=== PATIENT | male | born 1940 | race Caucasian/White ===

== ENCOUNTER 2019-10-26 13:10 | Inpatient (IN) ==
[2019-10-26 14:15] LABS: Basophils # (auto) 0.06 K/uL (0-0.2); Basophils % (auto) 0.8 %; Eosinophils # (auto) 0.09 K/uL (0-0.5); Eosinophils % (auto) 1.3 %; Hematocrit (blood only) 40.5 % (42-52); Hemoglobin 13.3 g/dL (14.0-18.0); Immature Granulocytes # (auto) 0.01 K/uL (0.00-0.02); Immature Granulocytes % (auto) 0.1 %; Lymphocytes # (auto) 1.07 K/uL (1.2-3.4); Lymphocytes % (auto) 15.2 %; Mean Corpuscular Hemoglobin 30.4 pg (25-34); Mean Corpuscular Hgb Conc 32.8 g/dL (32-36); Mean Corpuscular Volume 92.7 fL (80-100); Mean Platelet Volume 12.9 fL (7.4-10.4); Monocytes # (auto) 0.69 K/uL (0.11-0.59); Monocytes % (auto) 9.8 %; Neutrophils # (auto) 5.14 K/uL (1.4-6.5); Neutrophils % (auto) 72.8 %; Platelet Count 187 K/uL (130-400); RDW Coefficient of Variation 15.1 % (11.5-14.5); RDW Standard Deviation 50.9 fL (36.4-46.3); Red Blood Count 4.37 M/uL (4.7-6.1); White Blood Count 7.06 K/uL (4.8-10.8)
[2019-10-26 14:25] LABS: INR 1.2 (0.9-1.1); Prothrombin Time 11.9 Seconds (9.0-12.0)
[2019-10-26 14:34] LABS: Alanine Aminotransferase 29 U/L (12-78); Albumin Level 3.6 gm/dl (3.4-5.0); Aspartate Aminotransferase 29 U/L (15-37); BUN Creatinine Ratio 28.5 (10-20); Blood Urea Nitrogen 52 mg/dl (7-18); Carbon Dioxide 24 mmol/L (21-32); Chloride 105 mmol/L (98-107); Est GFR (Non-African American) 34.5; Glucose 108 mg/dl (70-99); Magnesium 2.3 mg/dl (1.8-2.4); Potassium 4.4 mmol/L (3.5-5.1); Sodium 137 mmol/L (136-145)
[2019-10-26 14:36] LABS: Bilirubin,Total 1.2 mg/dl (0.2-1); Globulin 3.7 gm/dl (2.5-4.0); Total Protein 7.3 gm/dl (6.4-8.2)
[2019-10-26 14:48] LABS: Alkaline Phosphatase 64 U/L (45-117); Troponin I 0.099 ng/ml (0-0.045)
--- NOTE | 2019-10-26 14:51 | XRay Report ---
XR chest 1V portable CLINICAL HISTORY: weakness dyspnea COMPARISON STUDY: No previous studies for comparison. FINDINGS: Mild cardiac enlargement. Interstitial prominence both lung bases. Mild elevation right hem idiaphragm. Trace pleural fluid lateral costophrenic angles. IMPRESSION: Congestive heart failure ACT 112: Negative or not required by law. The above report was generated using voice recognition software. It may contain grammatical, syntax or spelling errors. Electronically signed by: Frank Acosta M.D. 10/26/2019 2:50 PM
--- NOTE | 2019-10-26 14:54 | XRay Report ---
XR tibia fibula RT 2V CLINICAL HISTORY: fall trauma. Pain. COMPARISON: None. DISCUSSION: The bones and joint spaces appear intact. There is no evidence of fracture, dislocation o r bony disease. There is no evidence for soft tissue swelling. IMPRESSION: Negative study. ACT 112: Negative or not required by law. The above report was generated using voice recognition software. It may contain grammatical, syntax or spelling errors. Electronically signed by: Frank Acosta M.D. 10/26/2019 2:53 PM
--- NOTE | 2019-10-26 14:55 | XRay Report ---
XR tibia fibula LT 2V CLINICAL HISTORY: fall trauma. Pain. COMPARISON: None. DISCUSSION: The bones and joint spaces appear intact. There is no evidence of fracture, dislocation o r bony disease. Mild generalized soft tissue edema IMPRESSION: Soft tissue edema. No acute bony abnormality. ACT 112: Negative or not required by law. The above report was generated using voice recognition software. It may contain grammatical, syntax or spelling errors. Electronically signed by: Frank Acosta M.D. 10/26/2019 2:54 PM
--- NOTE | 2019-10-26 14:57 | Electrocardiogram Report ---
Test Reason : Blood Pressure : / mmHG Vent. Rate : 095 BPM Atrial Rate : 094 BPM P-R Int : 000 ms QRS Dur : 108 ms QT Int : 370 ms P-R-T Axes : 000 -17 147 degrees QTc Int : 464 ms Poor data quality, interpretation may be adversely affected Sinus rhythm with pvc with frequent Premature atrial complexes Inferior infarct , age undetermined Anterior infarct , age undetermined Abnormal ECG No previous ECGs available Confirmed by Jesus Parish ([id number]) on 10/26/2019 2:57:13 PM Referred By: ER Confirmed By:Jesus Parish
[2019-10-26] MEDS ORDERED: FUROSEMIDE 40 MG/4 ML VIAL IV STA ×2 (15:59→16:20)
--- NOTE | 2019-10-26 16:24 | Ultrasound Report ---
ULTRASOUND BILATERAL LOWER EXTREMITY VENOUS CLINICAL HISTORY: Lower extremity edema. COMPARISON STUDY: No priors. TECHNIQUE: Real-time, grayscale, and color Doppler sonography of the deep veins of the right and left lower extremity was performed from the inguinal crease to the calf. Compression and augmentation wer e utilized. FINDINGS: There is no sonographic evidence of deep venous thrombosis identified in the right or left lower extremity. The common femoral, superficial femoral, and popliteal veins are patent and normally compressible bilaterally. The greater saphenous vein and the profunda femoris vein at the junction w ith the common femoral vein are clear in both legs. The visualized calf veins are patent bilaterally. IMPRESSION: There is no sonographic evidence of deep venous thrombosis identified in the right or lef t lower extremity. ACT 112: Negative or not required by law. Electronically signed by: Kevon Sims M.D. 10/26/2019 4:23 PM
--- NOTE | 2019-10-26 16:45 | History & Physical Report ---
Date of Service October 26, 2019 Assessment & Plan (1) CHF (congestive heart failure): -Admit to telemetry -Patient presenting from home with reports of lower extremity pain and swelling -In the ED, CXR and exam suggestive of CHF -No prior history of decompensated CHF -Patient does not follow with medical providers routinely -Echo 2012: EF 55 to 59%, grade 1 diastolic dysfunction, moderate aortic valve sclerosis -Initial troponin mildly elevated, EKG shows NSR with PVC and PAC and T wave inversions in the lateral leads (no recent EKG available for comparison), no reports of chest pain -Troponin elevation likely due to demand ischemia -Continue to cycle cardiac enzymes, resting echo -Lasix 60 mg IV x1, further diuresis to be determined in the morning after evaluation of renal function -Cardiology consult (2) PAD (peripheral artery disease): -Patient's leg pain likely coming from intermittent claudication from PAD -Had outpatient arterial ultrasound on 09/07/2019 showing marked bilateral arterial vascular disease -Patient was referred for vascular intervention however has not been evaluated yet -Start aspirin and statin (3) Abnormal renal function: -Creatinine 1.8 -Unknown baseline, labs reviewed from PCP from 2017 showing creatinine 1.2 -May have underlying CKD -Monitor renal functions closely while receiving IV diuresis (4) HTN (hypertension): -BP currently controlled -Patient prescribed lisinopril 40 mg daily however takes infrequently -will hold for now due to abnormal renal function (5) Weight loss: -Patient reports a 20 pound unintentional weight loss over the past 2 months -Also has some right-sided abdominal tenderness on exam -CT ABD/pelvis without contrast (6) DVT prophylaxis: -SQ heparin History of Present Illness Chief Complaint: Leg Pain and Swelling Primary Care Provider: Low Rosas 79 year old male who presents to the ED for evaluation of leg pain and swelling. Patient reports his symptoms have been going on for about the past one year. Patient reports lower extremity pain with walking that improves with rest. He also notes the swelling gets worse with walking as well. Patient notes some shortness of breath in the morning after waking up. Has a dry, nonproductive cough. Denies chest pain. No orthopnea. Has been feeling generally weak recently and has had a few falls. Denies striking his head or loss of consciousness. No lightheadedness or dizziness. Reports his appetite has been poor over the past couple months and has had a 20 pound unintentional weight loss. Denies abdominal pain, nausea, vomiting, diarrhea. No fevers or chills. Denies urinary symptoms. Allergies Allergy/AdvReac Type Severity Reaction Status Date / Time No Known Drug Allergies AdvReac Unknown Unknown Unverified 10/26/19 13:44 Home Medications Home Medications Medication Instructions Recorded Confirmed Type lisinopril 40 mg PO DAILY 10/26/19 10/26/19 History Past Med/Surg History Medical History (Updated 10/26/19 @ 17:42 by CAIN Pacheco) HTN (hypertension) PAD (peripheral artery disease) Surgical History S/P carotid endarterectomy Family History Sister Stroke Social History Preferred Language: Vietnamese Communication Ability: Effective Pourer Off Required: No Beliefs That Will Affect Care: None Current Living Situation: Family Other Information That Helps Us Care for You: No Feels Safe at Home: Yes Safety Concerns: Feels Safe At This Time Smoking Status: Former smoker Do You Dip or Chew Tobacco: No ; Second Hand Exposure: No ; Hx Alcohol Use: Yes Alcohol type: beer Alcohol Intake Frequency: Weekly Hx Substance Use: No Review of Systems Review of Systems: ROS per HPI, all other systems reviewed and negative Physical Exam Physical Exam: Please refer to Dr. Shah's addendum for physical exam. Results & Data Vital Signs (Past 12 Hours) Vital Signs Temp Pulse Pulse Resp BP BP Pulse Ox 10/26/19 15:59 86 20 130/96 96 10/26/19 14:59 89 98 10/26/19 14:25 89 16 133/76 98 10/26/19 13:21 36.3 C L 83 18 109/73 98 Laboratory Results Short CBC 10/26/19 Range/Units 14:05 WBC 7.06 (4.8-10.8) K/uL Hgb 13.3 L (14.0-18.0) g/dL Hct 40.5 L (42-52) % Plt Count 187 (130-400) K/uL BMP 10/26/19 14:05 Sodium 137 Potassium 4.4 Chloride 105 Carbon Dioxide 24 BUN 52 H Creatinine 1.81 H Glucose 108 H Calcium 10.0 Cardiac Enzymes 10/26/19 Range/Units 14:05 Troponin I 0.099 H* (0-0.045) ng/ml Liver Function 10/26/19 Range/Units 14:05 Total Bilirubin 1.2 H (0.2-1) mg/dl AST 29 (15-37) U/L ALT 29 (12-78) U/L Alkaline Phosphatase 64 (45-117) U/L Albumin 3.6 (3.4-5.0) gm/dl Diagnostic Findings CXR IMPRESSION: Congestive heart failure LEFT TIBIA-FIBULA X-RAY IMPRESSION: Soft tissue edema. No acute bony abnormality. RIGHT TIBIA-FIBULA X-RAY IMPRESSION: Negative study. BL LE VENOUS DOPPLER IMPRESSION: There is no sonographic evidence of deep venous thrombosis identified in the right or left lower extremity. Code Status & VTE Plan Code Status Patient is a DNR as per Dr. Shah's discussion with the patient. VTE Prophylaxis Plan VTE Prophylaxis will be ordered: Yes Supervising Physician Co-Signing Physician Notes Patient is an 79-year-old male with history of peripheral artery disease, hypertension and no other significant past medical history presents with history of worsening lower extremity edema, shortness of breath intermittently, weight loss, poor appetite. He denied any chest pain. Patient admits to being noncompliant with his medications. He admits to falling multiple times but was unsure about the last event. Please review HPI for complete details of presentation. Chest x-ray suggestive of congestive heart failure. Venous Doppler showed no acute DVT. CT abdomen showed cholelithiasis, pericholecystic fluid and stranding. Physical Exam: Vitals signs as noted above General Appearance:Thin, Frail, no apparent distress Head: normocephalic, Atraumatic Eyes: normal inspection, EOMI Neck: supple, Trachea midline Respiratory/Chest: Normal breath sounds, B/L rales, No accessory muscle use Cardiovascular: S1, S2, + murmur Abdomen/GI:Soft, RUQ tender, Bowel sounds present Extremities/Musculoskelatal:normal inspection, B/L LE edema Neurologic/Psych:AAOX3, grossly no focal neurological deficits Skin: normal color, warm Acute CHF Agree with IV Lasix Monitor I's and O's, daily weight, volume status Cardiology consulted Troponin elevation likely secondary to demand ischemia from volume overload, CKD Patient denies chest pain Trend cardiac enzymes and repeat EKG in the morning Monitor renal function while on IV diuretics Check resting ECHO R/O cholecystitis CT abdominal findings as above Empirically started on Rocephin, Flagyl Keep him n.p.o. after midnight Consulted general surgery Trend LFTs I personally reviewed the record. Patient is interviewed and examined at bedside. Patient's care is coordinated with Kate Padilla [employer] SAL[employer]SULT[employer]. Please refer to the documentation above for details of patient's presentation and for discussion of other issues.
--- NOTE | 2019-10-26 17:31 | Emergency Department Note ---
Entered by Monroe Moreland acting as a scribe for Holland Villa M.D. History of Present Illness General Chief complaint: Swelling/Edema to Extremity Stated complaint: LEGS SWELLING Time Seen by Provider: 10/26/19 13:30 Source: patient Limitations: no limitations History of Present Illness Onset (ago): month(s) 1 Location: lower extremity (bilateral calves) Pain Consistency: + constant Maximum Pain Intensity: 0 Quality: + constant Exacerbated By: + movement (SOB) Associated symptoms: + denies other symptoms (abdominal pain, diarrhea) and + cough; no chest pain The patient is a 79 year old male who presents to the Emergency Room with complaints of constant calf pain in both of his calves starting a month ago. The patient states he has been falling and notes he fell last month because of his calf pain. He states he has been losing weight and notes he has lost his appetite. He notes he has been SOB with exertion. He states he has been coughing. The patient denies having chest pain, abdominal pain, and diarrhea. Home Medications Home Medications Medication Instructions Recorded Confirmed Type lisinopril 40 mg PO DAILY 10/26/19 10/26/19 History Allergies Allergy/AdvReac Type Severity Reaction Status Date / Time No Known Drug Allergies AdvReac Unknown Unknown Unverified 10/26/19 13:44 Past Med/Surg History Medical History (Updated 10/26/19 @ 17:30 by CAIN Pacheco) HTN (hypertension) PAD (peripheral artery disease) Surgical History S/P carotid endarterectomy Family History Sister Stroke Social History Preferred Language: Indonesian Feels Safe at Home: Yes Smoking Status: Former smoker Hx Alcohol Use: Yes Alcohol type: beer Alcohol Intake Frequency: Weekly Review of Systems See HPI for pertinent positives & negatives. and A total of 10 systems reviewed and were otherwise negative Physical Exam Vital Signs Vital Signs - 24 hr 10/26/19 13:21 10/26/19 14:07 10/26/19 14:21 Temperature 36.3 C L Temperature Source Oral Pulse Rate 83 89 90 Pulse Rate [Apical] Pulse Rate from SpO2 Sensor Pulse Rhythm Pulse Rhythm [Apical] Respiratory Rate 18 16 25 H Respiratory Effort / Characteristics Non-Labored Respiratory Depth Normal Blood Pressure 109/73 133/76 Blood Pressure [Right Arm] Blood Pressure Mean 85 83 Blood Pressure Mean [Right Arm] Blood Pressure Position Sitting Pulse Oximetry 98 Oxygen Delivery Method Room Air Sepsis Recent Fever Within 48 Hours No Sepsis New/Unexplained Change in Mental Status No Sepsis Action Taken by Nursing No Action Required 10/26/19 14:25 10/26/19 14:30 10/26/19 14:59 Temperature Temperature Source Pulse Rate 87 89 Pulse Rate [Apical] 89 Pulse Rate from SpO2 Sensor 89 Pulse Rhythm Irregular Pulse Rhythm [Apical] Respiratory Rate 16 22 Respiratory Effort / Characteristics Respiratory Depth Blood Pressure Blood Pressure [Right Arm] 133/76 Blood Pressure Mean Blood Pressure Mean [Right Arm] 95 Blood Pressure Position Pulse Oximetry 98 98 98 Oxygen Delivery Method Room Air Room Air Sepsis Recent Fever Within 48 Hours Sepsis New/Unexplained Change in Mental Status Sepsis Action Taken by Nursing 10/26/19 15:00 10/26/19 15:30 10/26/19 15:53 Temperature Temperature Source Pulse Rate 90 84 Pulse Rate [Apical] Pulse Rate from SpO2 Sensor 90 87 Pulse Rhythm Pulse Rhythm [Apical] Respiratory Rate 24 27 H Respiratory Effort / Characteristics Respiratory Depth Blood Pressure 130/96 Blood Pressure [Right Arm] Blood Pressure Mean 109 Blood Pressure Mean [Right Arm] Blood Pressure Position Pulse Oximetry 97 84 L Oxygen Delivery Method Sepsis Recent Fever Within 48 Hours Sepsis New/Unexplained Change in Mental Status Sepsis Action Taken by Nursing 10/26/19 15:59 10/26/19 16:24 10/26/19 16:25 Temperature Temperature Source Pulse Rate 91 H 90 Pulse Rate [Apical] 86 Pulse Rate from SpO2 Sensor Pulse Rhythm Pulse Rhythm [Apical] Irregular Respiratory Rate 20 14 19 Respiratory Effort / Characteristics Non-Labored Respiratory Depth Normal Blood Pressure 128/80 Blood Pressure [Right Arm] 130/96 Blood Pressure Mean 90 Blood Pressure Mean [Right Arm] 107 Blood Pressure Position Pulse Oximetry 96 Oxygen Delivery Method Room Air Sepsis Recent Fever Within 48 Hours Sepsis New/Unexplained Change in Mental Status Sepsis Action Taken by Nursing 10/26/19 16:30 10/26/19 17:00 Temperature Temperature Source Pulse Rate 103 H 91 H Pulse Rate [Apical] Pulse Rate from SpO2 Sensor Pulse Rhythm Pulse Rhythm [Apical] Respiratory Rate 19 20 Respiratory Effort / Characteristics Respiratory Depth Blood Pressure Blood Pressure [Right Arm] Blood Pressure Mean Blood Pressure Mean [Right Arm] Blood Pressure Position Pulse Oximetry Oxygen Delivery Method Sepsis Recent Fever Within 48 Hours Sepsis New/Unexplained Change in Mental Status Sepsis Action Taken by Nursing GENERAL: Awake, alert, fatigued appearing, in no distress HENT: Normocephalic, atraumatic. EYES: Normal conjunctiva. Sclera non-icteric. NECK: Supple. No nuchal rigidity. RESPIRATORY: Clear to auscultation. No wheezes. Normal respiratory effort. CARDIAC: Normal rate. Irregular rhythm. Extremities warm and well perfused. GI: Soft, non-distended. No tenderness to palpation. No rebound or guarding. RECTAL: Deferred. MUSCULOSKELETAL: Atraumatic. Chest examination reveals no tenderness. LOWER EXTREMITIES: Calves are equal size bilaterally. 2+ lower extremity edema with mild bilateral calf pain/tenderness. NEURO: Normal sensorium. No sensory or motor deficits noted. No facial droop. SKIN: Warm and dry. No jaundice noted. Course Course 1342: The patient was evaluated in room A3, and a complete history and physical examination were performed. 1600: I discussed the patient's case with Dano Pacheco. Dr. Shah - [facility], will evaluate the patient for further management Administered Medications Discontinued Medications Furosemide (Lasix) 20 mg IV NOW STA Stop: 10/26/19 16:00 Last Admin: 10/26/19 16:50 Dose: Not Given Documented by: [id number] Furosemide (Lasix) 60 mg IV NOW STA Stop: 10/26/19 16:21 Last Admin: 10/26/19 16:50 Dose: 60 mg Documented by: [id number] Medical Decision Making Differential Diagnosis Differential Diagnosis includes but is not limited to dehydration, stroke, anemia, hypoglycemia, hyponatremia, hypernatremia, DVT, urinary tract infection, pneumonia, bronchitis, sepsis, gastroenteritis, additional abdominal pathology, metabolic abnormalities and infections. Medical Records Attestation: I reviewed the patient's medical records. Home Medications Current Medication List: was personally reviewed by me Laboratory Data Attestation: I reviewed the patient's lab results. Result diagrams: 10/26/19 14:05 10/26/19 14:05 Lab Results 10/26/19 10/26/19 10/26/19 Range/Units 14:05 14: 14:05 WBC 7.06 (4.8-10.8) K/uL RBC 4.37 L (4.7-6.1) M/uL Hgb 13.3 L (14.0-18.0) g/dL Hct 40.5 L (42-52) % MCV 92.7 (80-100) fL MCH 30.4 (25-34) pg MCHC 32.8 (32-36) g/dL RDW Std Deviation 50.9 H (36.4-46.3) fL RDW Coeff of Kurtis 15.1 H (11.5-14.5) % Plt Count 187 (130-400) K/uL MPV 12.9 H (7.4-10.4) fL Immature Gran % (Auto) 0.1 % Neut % (Auto) 72.8 % Lymph % (Auto) 15.2 % Nelson % (Auto) 9.8 % Eos % (Auto) 1.3 % Baso % (Auto) 0.8 % Immature Gran # (Auto) 0.01 (0.00-0.02) K/uL Neut # (Auto) 5.14 (1.4-6.5) K/uL Lymph # (Auto) 1.07 L (1.2-3.4) K/uL Nelson # (Auto) 0.69 H (0.11-0.59) K/uL Eos # (Auto) 0.09 (0-0.5) K/uL Baso # (Auto) 0.06 (0-0.2) K/uL PT 11.9 (9.0-12.0) Seconds INR 1.2 H (0.9-1.1) Sodium 137 (136-145) mmol/L Potassium 4.4 (3.5-5.1) mmol/L Chloride 105 (98-107) mmol/L Carbon Dioxide 24 (21-32) mmol/L Anion Gap 8.0 (3-11) BUN 52 H (7-18) mg/dl Creatinine 1.81 H (0.6-1.4) mg/dl Est Cr Clr Drug Dosing Not Reportable Est GFR ( Amer) 40.0 Est GFR (Non-Af Amer) 34.5 BUN/Creatinine Ratio 28.5 H (10-20) Glucose 108 H (70-99) mg/dl Calcium 10.0 (8.5-10.1) mg/dl Magnesium 2.3 (1.8-2.4) mg/dl Total Bilirubin 1.2 H (0.2-1) mg/dl AST 29 (15-37) U/L ALT 29 (12-78) U/L Alkaline Phosphatase 64 (45-117) U/L Troponin I 0.099 H* (0-0.045) ng/ml Total Protein 7.3 (6.4-8.2) gm/dl Albumin 3.6 (3.4-5.0) gm/dl Globulin 3.7 (2.5-4.0) gm/dl Albumin/Globulin Ratio 1.0 (0.9-2) TSH 3.300 (0.300-4.500) uIu/ml Imaging Data Radiologist's Impression: Radiology results as stated below per my review and the radiologist's interpretation: XR chest 1V portable CLINICAL HISTORY: weakness dyspnea COMPARISON STUDY: No previous studies for comparison. FINDINGS: Mild cardiac enlargement. Interstitial prominence both lung bases. Mild elevation right hemidiaphragm. Trace pleural fluid lateral costophrenic angles. IMPRESSION: Congestive heart failure ACT 112: Negative or not required by law. The above report was generated using voice recognition software. It may contain grammatical, syntax or spelling errors. Electronically signed by: Frank Acosta M.D. 10/26/2019 2:50 PM XR tibia fibula LT 2V CLINICAL HISTORY: fall trauma. Pain. COMPARISON: None. DISCUSSION: The bones and joint spaces appear intact. There is no evidence of fracture, dislocation or bony disease. Mild generalized soft tissue edema IMPRESSION: Soft tissue edema. No acute bony abnormality. ACT 112: Negative or not required by law. The above report was generated using voice recognition software. It may contain grammatical, syntax or spelling errors. Electronically signed by: Frank Acosta M.D. 10/26/2019 2:54 PM XR tibia fibula RT 2V CLINICAL HISTORY: fall trauma. Pain. COMPARISON: None. DISCUSSION: The bones and joint spaces appear intact. There is no evidence of f racture, dislocation or bony disease. There is no evidence for soft tissue swelling. IMPRESSION: Negative study. ACT 112: Negative or not required by law. The above report was generated using voice recognition software. It may contain grammatical, syntax or spelling errors. Electronically signed by: Frank Acosta M.D. 10/26/2019 2:53 PM ECG Data Attestation: I personally reviewed and interpreted this ECG as follows: Indication: + weakness Rate (beats per minute): 95 Rhythm: + sinus rhythm ECG ST segments: + T-wave inversions (lateral) ECG Findings: + PACs and + PVCs Comparison ECG Date: no prior available Blood Pressure Blood Pressure Findings: Elevated blood pressure Blood Pressure Disposition: further management by hospitalist QI Narrative Patient is an 79-year-old gentleman presenting today complaining of swelling of his bilateral lower legs and some calf pain over the last month or so. States last 3 months he is to the gym regularly but now feels weak and has some wasting of his extremities and losing weight. States he is not much of an appetite. Distant smoker. Denies chest pain but states occasionally feels short of breath with stairs. States occasionally gets some claudication sounding symptoms with going up the stairs. States he fell a month ago and bumped his head but do not feel we need additional imaging here at this time given the time since this occurred and lack of significant symptoms. Laboratory studies show evidence of slight anemia. Renal dysfunction was noted with creatinine 1.8 otherwise unsure of his baseline. Detectable elevated troponin is noted. TSH within normal is. Note is hepatic dysfunction. Bilirubin just above normal. Doubt this represents PE. Ultrasound lower extremities negative findings and as well as the tib-fib x-rays bilaterally. Chest x-ray noted on radiology report and r eviewed by myself with evidence of mild right hemidiaphragm elevation and trace fluid congestion with some fluid overload/CHF. EKG noted to show what appears to be in conjunction with a monitor normal rhythm with ectopy and I doubt this is acute A. fib. Given a small mount of Lasix for evidence of fluid overload. Believe this is likely new onset CHF. Ultrasound lower extremity completed without evidence of blood clots. [facility] May have some underlying cardiac disease as well. Impression & Plan Elevated troponin, ABDUL (dyspnea on exertion), New onset of congestive heart failure, Pedal edema Discharge Plan Visit Data Chief Complaint: Swelling/Edema to Extremity Stated Complaint: LEGS SWELLING ED Provider: Holland Villa Discharge Problem: Elevated troponin, ABDUL (dyspnea on exertion), New onset of congestive heart failure, Pedal edema Patient Disposition: Being Evaluated by Hospitalist Forms Stand Alone Forms: My [facility] Prescriptions Prescriptions: No Action lisinopril 40 mg Tablet 40 mg PO DAILY RF: 0 Referrals Referrals: Low Rosas [Primary Care Provider] - The scribe's documentation has been prepared under my direction and personally reviewed by me in its entirety. I confirm that the note above accurately reflects all work, treatment, procedures, and medical decision making performed by me.
[2019-10-26] MEDS ORDERED: ACETAMINOPHEN 325 MG TAB PO PRN (18:07)
[2019-10-26] MEDS ORDERED: NITROGLYCERIN SL 0.4 MG/TAB TAB SL PRN (18:07)
--- NOTE | 2019-10-26 18:51 | CT Scan Report ---
CT SCAN OF THE ABDOMEN AND PELVIS WITHOUT IV CONTRAST CLINICAL HISTORY: Generalized abdominal pain. Weight loss. COMPARISON STUDY: No priors. TECHNIQUE: CT scan of the abdomen and pelvis is performed from the lung bases to the proximal femora. Images are reviewed in the axial, sagittal, and coronal planes. IV contrast was not administered for this examination as per the referring clinician. Note that the examination was performed in signific antly suboptimal fashion without oral and IV contrast. A dose lowering technique was utilized adherin g to the principles of ALARA. CT DOSE: 299.02 mGy.cm FINDINGS: Lung bases: The heart is enlarged and without pericardial effusion. The coronary arteries are densely calcified. There are moderate pleural effusions with associated atelectasis. Intralobular septal thi ckening at the lung bases suggests congestive failure. Liver: The unenhanced liver is normal in size, contour, and attenuation. There is no intrahepatic ginna iary ductal dilatation. Gallbladder: Calcified gallstones are identified. Pericholecystic stranding and fluid are suggested. Spleen: Normal in size and attenuation. Pancreas: The unenhanced pancreas is atrophic and grossly unremarkable. Adrenal glands: Unremarkable. Kidneys: The unenhanced kidneys are atrophic and without hydronephrosis. Renovascular calcifications are seen bilaterally. No definite renal calculi are identified. There is no evidence of contour defor nash renal mass lesion. Abdominal vasculature: There is advanced atherosclerotic calcification of the abdominal aorta. An inf rarenal abdominal aortic aneurysm measures up to 3 cm. Bowel: The small bowel and colon are normal in course and caliber. The appendix is nonvisualized. Peritoneum: There is a small volume of abdominopelvic ascites. No intraperitoneal free air is seen. Lymphadenopathy: None. Pelvic viscera: The prostate gland is enlarged and heterogeneous. The bladder wall is mildly thickene d and trabeculated indicating chronic outlet obstruction. Skeletal structures: The skeletal structures are osteopenic. No lytic or blastic lesions are seen. Th ere is mild lumbosacral spondylosis. Soft tissues: There is body wall edema. The patient is cachectic. IMPRESSION: 1. Significantly suboptimal examination without oral and IV contrast. 2. Cardiomegaly with evidence of congestive failure. 3. Moderate pleural effusions. 4. Cholelithiasis. Pericholecystic fluid and stranding are suggested. Correlate clinically for eviden ce of cholecystitis. If clinically warranted this could be further assessed with right upper quadrant ultrasound. 5. There is a small volume of abdominopelvic ascites. 6. There is a 3.0 cm infrarenal abdominal aortic aneurysm. 7. Additional findings as above. ACT 112: Negative or not required by law. Electronically signed by: Kevon Sims M.D. 10/26/2019 6:49 PM
[2019-10-26] MEDS ORDERED: cefTRIAXone SODIUM 1,000 MG in DEXTROSE 5% 50 ML IV SCH (20:30)
[2019-10-26] MEDS ORDERED: ATORVASTATIN 40 MG TAB PO SCH (21:00)
[2019-10-26] MEDS: HEPARIN SOD 5,000 UNIT/0.5 ML VIAL SQ SCH (21:05)
[2019-10-26] MEDS: metroNIDAZOLE 500 MG/100 ML BAG IV SCH (21:05)
[2019-10-26] MEDS: ASPIRIN 81 MG ECTAB PO SCH (21:05)
[2019-10-26 22:08] LABS: Appearance Urine Clear (Clear); Bacteria Urine Automated Negative (Negative); Bilirubin Urine Negative (Negative); Blood Urine Negative (Negative); Color Urine Yellow; Glucose Urine UA Negative (Negative); Ketones Urine Negative (Negative); Leukocyte Esterase Urine 2+ (Negative); Nitrite Urine Negative (Negative); Protein Urine Negative (Negative); RBC Urine Automated 0-4 /hpf (0-4); Specific Gravity Urine 1.009 (1.000-1.030); Urobilinogen Urine Negative (Negative)
[2019-10-27 02:05] LABS: Hematocrit (blood only) 35.9 % (42-52); Hemoglobin 11.7 g/dL (14.0-18.0); Mean Corpuscular Hemoglobin 29.6 pg (25-34); Mean Corpuscular Hgb Conc 32.6 g/dL (32-36); Mean Corpuscular Volume 90.9 fL (80-100); Mean Platelet Volume 12.3 fL (7.4-10.4); Platelet Count 151 K/uL (130-400); RDW Coefficient of Variation 14.8 % (11.5-14.5); RDW Standard Deviation 49.6 fL (36.4-46.3); Red Blood Count 3.95 M/uL (4.7-6.1); White Blood Count 5.66 K/uL (4.8-10.8)
[2019-10-27 02:22] LABS: Albumin Level 2.8 gm/dl (3.4-5.0); Bilirubin Direct 0.3 mg/dl (0-0.2); Creatinine Clr Calc Pharmacy 32.6 ml/min; Est GFR (African American) 40.6; Potassium 4.2 mmol/L (3.5-5.1)
[2019-10-27 02:29] LABS: Troponin I 0.126 ng/ml (0-0.045)
[2019-10-27] MEDS: metroNIDAZOLE 500 MG/100 ML BAG IV SCH (05:05)
[2019-10-27] MEDS: HEPARIN SOD 5,000 UNIT/0.5 ML VIAL SQ SCH (06:22)
--- NOTE | 2019-10-27 07:06 | Ultrasound Report ---
ULTRASOUND RIGHT UPPER QUADRANT ABDOMEN CLINICAL HISTORY: Generalized abdominal pain. Abnormal CT. COMPARISON STUDY: Abdominal CT dated 10/26/2019. TECHNIQUE: Real-time, grayscale, and color flow sonography of the right upper quadrant of the abdomen was performed. Images are reviewed in the transverse and longitudinal planes. FINDINGS: Liver: The liver is normal in size and heterogeneous and echotexture. There is no intrahepatic biliar y ductal dilatation. The main portal vein is patent. Gallbladder: There are shadowing calcified gallstones. The gallbladder is mildly distended. The gallb ladder wall appears thickened measuring up to 4 mm and there is pericholecystic fluid. A sonographic Pepe's sign could not be assessed. The common bile duct measures up to 0.2 cm in diameter. Pancreas: Visualized portions of the pancreatic head and body are normal in appearance. Splenic vein is patent. Right kidney: Survey images of the right kidney demonstrate normal size and echotexture. There is no hydronephrosis. Ascites: There is a small volume of perihepatic ascites. Pleural spaces: There is a right pleural effusion. IMPRESSION: 1. Cholelithiasis within a distended and mildly thick-walled gallbladder. A sonographic Pepe's sign could not be assessed. Findings are equivocal for acute cholecystitis which is not excluded. Nuclear hepatobiliary scan could be considered for further assessment. 2. There is a small volume of pericholecystic and perihepatic ascites. 3. Right pleural effusion. ACT 112: Negative or not required by law. Electronically signed by: Kevon Sims M.D. 10/27/2019 7:05 AM
--- NOTE | 2019-10-27 07:58 | Surgery Consultation ---
Date of Consultation October 27, 2019 Assessment & Plan (1) Weight loss: Cholelithiasis, may have some degree of chronic cholecystitis more likely than acute with perihepatic/cholecystic fluid from CHF. Consider HIDA scan, will discuss with primary service. Supervising Physician Co-Signing Physician Notes patient left AMA prior to my seeing him. Agree with note above. History of Present Illness Attending Physician: Felice Shah MD History of Present Illness 79 y/o male presented to ED with leg swelling, calf pain and admitted for CHF, also referred for outpatient eval of PAD. Has had weight loss, lack of appetite for sometime. Mostly doesn't have same eating habits since his 's a few years ago. No postprandial symptoms, N/V, or food intolerance. No RUQ pain, no back pain. 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 No previous abdominal surgery. Notes that calf swelling has improved significantly overnight. Allergies Allergy/AdvReac Type Severity Reaction Status Date / Time No Known Drug Allergies AdvReac Unknown Unknown Unverified 10/26/19 13:44 Home Medications Home Medications Medication Instructions Recorded Confirmed Type aspirin [Ecotrin Low Strength] 81 mg PO DAILY #30 tab 10/27/19 Rx atorvastatin 40 mg PO HS #30 tab 10/27/19 Rx cefdinir 300 mg PO BID 7 Days #14 cap 10/27/19 Rx furosemide [Lasix] 20 mg PO UD #30 tab 10/27/19 Rx lisinopril 20 mg PO DAILY #30 tab 10/27/19 Rx metoprolol succinate [Toprol XL] 12.5 mg PO DAILY #30 tab 10/27/19 Rx metronidazole [Flagyl] 500 mg PO Q8H 7 Days #21 tab 10/27/19 Rx Patient History Medical History HTN (hypertension) PAD (peripheral artery disease) Surgical History S/P carotid endarterectomy Family History Sister Stroke Social History Preferred Language: Irish Communication Ability: Effective Patient Consumer Marketer Required: No Beliefs That Will Affect Care: None Current Living Situation: Family Feels Safe at Home: Yes Smoking Status: Former smoker Second Hand Exposure: No ; Hx Alcohol Use: Yes Alcohol type: beer Alcohol Intake Frequency: Weekly Hx Substance Use: No Review of Systems Constitutional: + weight loss; no fever, no chills, no sweats and no anorexia Gastrointestinal: no abdominal pain, no bloating, no early satiety, no heartburn, no nausea and no vomiting Physical Exam Constitutional: WD/WN, vitals as above well developed Respiratory: normal respiratory effort, lungs clear to auscultation Cardiovascular: RRR, no murmur, no edema Gastrointestinal (Abdomen): Inspection/Auscultation: abdomen not distended Percussion/Palpation: abdomen soft; abdomen nontender, no guarding and no hepatomegaly Results & Data Vital Signs (Past 12 Hours) Vital Signs Temp Pulse Pulse Pulse Resp BP Pulse Ox 10/27/19 07:22 36.4 C L 77 20 117/72 93 10/27/19 03:00 36.2 C L 80 16 105/57 L 94 10/26/19 23:03 36.3 C L 92 H 16 106/64 94 10/26/19 19:52 36.0 C L 90 19 122/79 98 PG Care Time/CCT Total # of Minutes Spent Total Time Spent with Patient: Total time spent is greater than 50% in coordination of care (as documented) at patient's floor/unit and/or counseling patient:
[2019-10-27] MEDS: ASPIRIN 81 MG ECTAB PO SCH (08:17)
--- NOTE | 2019-10-27 11:28 | Cardiology Consultation ---
Date of Consultation October 27, 2019 Assessment & Plan (1) CHF (congestive heart failure): Patient presents with worsening symptoms of edema weakness and fatigue. Congestive heart failure noted on chest x-ray and physical examination. Echocardiogram confirms diffuse cardiomyopathy with severe LV dysfunction EF less than 15% at least moderate aortic stenosis and moderate to severe mitral and tricuspid insufficiency. Patient states he wishes no further investigation or testing done would recommend addition of medications to obtain reasonable regimen. Add low-dose beta-socorro with Toprol-XL 12.5 mg/day, reduce lisinopril to 20 mg p.o. daily, add furosemide 20 mg 3 to 5 days/week for management of edema with CHF instructions to be given Patient does not wish to follow-up appointment. Overall prognosis limited all discussions made in the company of patient's son who agrees with patient's wishes (2) Cardiomyopathy: (3) Calcific aortic stenosis: History of Present Illness Reason for Consultation: Congestive heart failure Requesting Physician: Dr. Shah Attending Physician: Felice Shah MD History of Present Illness Patient is an 79-year-old male without prior history of cardiac disease with records in patient reflecting prior history of hypertension possible peripheral vascular disease with claudication. Patient presented for evaluation with symptoms of worsening lower extremity edema and leg weakness with exertion. Edema responded promptly to IV diuretics on admission. He is referred for additional evaluation. Clinical history is notable for gradual decline in overall exercise tolerance the patient vigorously active about home. Notes marked weakness in the legs with minimal exertion. Notes no chest pains, tachypalpitations, syncope or near syncope. Has fallen recently "legs just gave out. Appetite is been poor with noted anorexia and greater than 20 pound weight loss. No fevers chills unexplained infections. Openly states he wishes minimal intervention including medications and testing. Son present and confirms patient wishes Echocardiogram since admission demonstrates diffuse LV dysfunction EF less than 15% with calcified aortic valve and at least moderate aortic stenosis and mild aortic insufficiency there is moderate to severe mitral and moderate tricuspid insufficiency with evidence of elevated pulmonary pressures Allergies Allergy/AdvReac Type Severity Reaction Status Date / Time No Known Drug Allergies AdvReac Unknown Unknown Unverified 10/26/19 13:44 Home Medications Home Medications Medication Instructions Recorded Confirmed Type lisinopril 40 mg PO DAILY 10/26/19 10/26/19 History Patient History Medical History HTN (hypertension) PAD (peripheral artery disease) Surgical History S/P carotid endarterectomy Family History Sister Stroke Social History Preferred Language: Wallisian Communication Ability: Effective [employer] Paralegal Required: No Beliefs That Will Affect Care: None Current Living Situation: Family Other Information That Helps Us Care for You: No Feels Safe at Home: Yes Safety Concerns: Feels Safe At This Time Smoking Status: Former smoker Do You Dip or Chew Tobacco: No ; Second Hand Exposure: No ; Hx Alcohol Use: Yes Alcohol type: beer Alcohol Intake Frequency: Weekly Hx Substance Use: No Results & Data Vital Signs (Past 12 Hours) Vital Signs Temp Pulse Pulse Resp BP Pulse Ox 10/27/19 07:22 36.4 C L 77 20 117/72 93 10/27/19 03:00 36.2 C L 80 16 105/57 L 94 Laboratory Results Laboratory Results - last 24 hr 10/26/19 10/26/19 10/26/19 14:05 14:05 14:05 WBC 7.06 RBC 4.37 L Hgb 13.3 L Hct 40.5 L MCV 92.7 MCH 30.4 MCHC 32.8 RDW Std Deviation 50.9 H RDW Coeff of Kurtis 15.1 H Plt Count 187 MPV 12.9 H Immature Gran % (Auto) 0.1 Neut % (Auto) 72.8 Lymph % (Auto) 15.2 [place] % (Auto) 9.8 Eos % (Auto) 1.3 Baso % (Auto) 0.8 Immature Gran # (Auto) 0.01 Neut # (Auto) 5.14 Lymph # (Auto) 1.07 L [place] # (Auto) 0.69 H Eos # (Auto) 0.09 Baso # (Auto) 0.06 PT 11.9 INR 1.2 H Sodium 137 Potassium 4.4 Chloride 105 Carbon Dioxide 24 Anion Gap 8.0 BUN 52 H Creatinine 1.81 H Est Cr Clr Drug Dosing Not Reportable Est GFR ( Amer) 40.0 Est GFR (Non-Af Amer) 34.5 BUN/Creatinine Ratio 28.5 H Glucose 108 H Calcium 10.0 Magnesium 2.3 Total Bilirubin 1.2 H Direct Bilirubin AST 29 ALT 29 Alkaline Phosphatase 64 Troponin I 0.099 H* Total Protein 7.3 Albumin 3.6 Globulin 3.7 Albumin/Globulin Ratio 1.0 Triglycerides Cholesterol LDL Cholesterol, Calc VLDL Cholesterol, Calc HDL Cholesterol Cholesterol/HDL Ratio TSH 3.300 Urine Color Urine Appearance Urine pH Ur Specific [place] Urine Protein Urine Glucose (UA) Urine Ketones Urine Blood Urine Nitrite Urine Bilirubin Urine Urobilinogen Ur Leukocyte Esterase Urine WBC (Auto) Urine RBC (Auto) U Hyaline Cast (Auto) U Epithel Cells (Auto) Urine Bacteria (Auto) 10/26/19 10/26/19 10/27/19 19:52 21:45 01:56 WBC RBC Hgb Hct MCV MCH MCHC RDW Std Deviation RDW Coeff of [place] Plt Count MPV Immature Gran % (Auto) Neut % (Auto) Lymph % (Auto) [place] % (Auto) Eos % (Auto) Baso % (Auto) Immature Gran # (Auto) Neut # (Auto) Lymph # (Auto) [place] # (Auto) Eos # (Auto) Baso # (Auto) PT INR Sodium 140 Potassium 4.2 Chloride 108 H Carbon Dioxide 25 Anion Gap 7.0 BUN 48 H Creatinine 1.79 H Est Cr Clr Drug Dosing 32.6 Est GFR ( Amer) 40.6 Est GFR (Non-Af Amer) 35.0 BUN/Creatinine Ratio 27.0 H Glucose 95 Calcium 9.0 Magnesium Total Bilirubin 1.0 Direct Bilirubin 0.3 H AST 22 ALT 24 Alkaline Phosphatase 53 Troponin I 0.105 H* 0.126 H* Total Protein 6.0 L Albumin 2.8 L Globulin Albumin/Globulin Ratio Triglycerides 79 Cholesterol 149 LDL Cholesterol, Calc 98 VLDL Cholesterol, Calc 16 HDL Cholesterol 35 Cholesterol/HDL Ratio 4 TSH Urine Color Yellow Urine Appearance Clear Urine pH 5.0 Ur Specific [place] 1.009 Urine Protein Negative Urine Glucose (UA) Negative Urine Ketones Negative Urine Blood Negative Urine Nitrite Negative Urine Bilirubin Negative Urine Urobilinogen Negative Ur Leukocyte Esterase 2+ H Urine WBC (Auto) 5-10 H Urine RBC (Auto) 0-4 U Hyaline Cast (Auto) 1-5 U Epithel Cells (Auto) 10-20 H Urine Bacteria (Auto) Negative 01/15/20 01:56 WBC 5.66 RBC 3.95 L Hgb 11.7 L Hct 35.9 L MCV 90.9 MCH 29.6 MCHC 32.6 RDW Std Deviation 49.6 H RDW Coeff of [place] 14.8 H Plt Count 151 MPV 12.3 H Immature Gran % (Auto) Neut % (Auto) Lymph % (Auto) [place] % (Auto) Eos % (Auto) Baso % (Auto) Immature Gran # (Auto) Neut # (Auto) Lymph # (Auto) [place] # (Auto) Eos # (Auto) Baso # (Auto) PT INR Sodium Potassium Chloride Carbon Dioxide Anion Gap BUN Creatinine Est Cr Clr Drug Dosing Est GFR ( Amer) Est GFR (Non-Af Amer) BUN/Creatinine Ratio Glucose Calcium Magnesium Total Bilirubin Direct Bilirubin AST ALT Alkaline Phosphatase Troponin I Total Protein Albumin Globulin Albumin/Globulin Ratio Triglycerides Cholesterol LDL Cholesterol, Calc VLDL Cholesterol, Calc HDL Cholesterol Cholesterol/HDL Ratio TSH Urine Color Urine Appearance Urine pH Ur Specific [place] Urine Protein Urine Glucose (UA) Urine Ketones Urine Blood Urine Nitrite Urine Bilirubin Urine Urobilinogen Ur Leukocyte Esterase Urine WBC (Auto) Urine RBC (Auto) U Hyaline Cast (Auto) U Epithel Cells (Auto) Urine Bacteria (Auto)
--- NOTE | 2019-10-27 11:38 | Electrocardiogram Report ---
Test Reason : Blood Pressure : / mmHG Vent. 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
--- NOTE | 2019-10-27 13:54 | Hospitalist Progress Note ---
Date of Service October 27, 2019 Assessment & Plan (1) CHF (congestive heart failure): Acute Systolic and diastolic CHF Patient presented with worsening lower extremity pain and swelling ECHO: EF , 15%, mild LVH, severe global hypokinesis of left ventricle, grade 3 diastolic dysfunction, moderate to severe aortic stenosis, mild AR, moderate to severe MR, moderate TR, moderate size left pleural effusion. CXR suggestive of CHF Mild elevation of troponin likely demand ischemia secondary to CHF, CKD Received IV Lasix Appreciate Cardiology Input Started on low-dose metoprolol, lisinopril Continue diuretics as per cardiology recommendation Patient prefers to be discharged home AGAINST MEDICAL ADVICE despite explaining the risks and consequences (2) PAD (peripheral artery disease): Outpatient arterial ultrasound on 09/07/2019 showing marked bilateral arterial vascular disease Patient was referred for vascular intervention however has not been evaluated yet Started on aspirin, statin Possible Chronic Cholecystitis --CT ABD: Cardiomegaly with evidence of congestive failure. Moderate pleural effusions. Cholelithiasis. Pericholecystic fluid and stranding are suggested. Correlate clinically for evidence of cholecystitis. If clinically warranted this could be further assessed with right upper quadrant ultrasound. There is a small volume of abdominopelvic ascites. There is a 3.0 cm infrarenal abdominal aortic aneurysm. --Gall Bladder USD: Cholelithiasis within a distended and mildly thick-walled gallbladder. A sonographic Pepe's sign could not be assessed. Findings are equivocal for acute cholecystitis which is not excluded. Nuclear hepatobiliary scan could be considered for further assessment. There is a small volume of pericholecystic and perihepatic ascites. Right pleural effusion. --Continue IV antibiotics --Patient refuses HIDA scan --Appreciate surgery input --Patient refuses any surgical intervention if needed, explained the consequences and risks without complete treatment --Patient left AMA (3) Abnormal renal function: Possibly has underlying CKD III Creatinine 1.8 Unknown baseline Cr Monitor renal function (4) HTN (hypertension): Continue lisinopril, metoprolol Monitor (5) Weight loss: Patient reports a 20 pound unintentional weight loss over the past 2 months Likely due to above (6) DVT prophylaxis: SQ heparin Disposition Patient left AGAINST MEDICAL ADVICE Subjective Patient is seen and examined at bedside Feels a lot better today Denies any chest pain, shortness of breath, dizziness, nausea, abdominal pain Prefers no further investigations to rule out acute cholecystitis Refuses HIDA scan Prefers to be discharged despite explaining the risks and consequences Family at bedside Discussed with cardiology Review of Systems Review of Systems: All systems reviewed & are unremarkable except as noted in HPI & below Physical Exam Physical Exam: Physical Exam: Vitals signs as noted above General Appearance:Thin, Frail, no apparent distress Head: normocephalic, Atraumatic Eyes: normal inspection, EOMI Neck: supple, Trachea midline Respiratory/Chest: Normal breath sounds, B/L rales, No accessory muscle use Cardiovascular: S1, S2, + murmur Abdomen/GI:Soft, RUQ tender, Bowel sounds present Extremities/Musculoskelatal:normal inspection, B/L LE edema Neurologic/Psych:AAOX3, grossly no focal neurological deficits Skin: normal color, warm Results & Data Vital Signs (Past 12 Hours) Vital Signs Temp Pulse Pulse Resp BP Pulse Ox 10/27/19 12:00 36.3 C L 90 16 122/83 99 10/27/19 07:22 36.4 C L 77 20 117/72 93 10/27/19 03:00 36.2 C L 80 16 105/57 L 94 Laboratory Results Short CBC 10/27/19 Range/Units 01:56 WBC 5.66 (4.8-10.8) K/uL Hgb 11.7 L (14.0-18.0) g/dL Hct 35.9 L (42-52) % Plt Count 151 (130-400) K/uL BMP 10/27/19 01:56 Sodium 140 Potassium 4.2 Chloride 108 H Carbon Dioxide 25 BUN 48 H Creatinine 1.79 H Glucose 95 Calcium 9.0 Cardiac Enzymes 10/26/19 10/27/19 Range/Units 19:52 01:56 Troponin I 0.105 H* 0.126 H* (0-0.045) ng/ml Liver Function 10/27/19 Range/Units 01:56 Total Bilirubin 1.0 (0.2-1) mg/dl Direct Bilirubin 0.3 H (0-0.2) mg/dl AST 22 (15-37) U/L ALT 24 (12-78) U/L Alkaline Phosphatase 53 (45-117) U/L Albumin 2.8 L (3.4-5.0) gm/dl Urine 10/26/19 Range/Units 21:45 Urine Color Yellow Urine Appearance Clear (Clear) Urine pH 5.0 (4.5-7.5) Ur Specific [place] 1.009 (1.000-1.030) Urine Protein Negative (Negative) Urine Glucose (UA) Negative (Negative)
--- NOTE | 2019-10-27 17:01 | Discharge Summary ---
Date of Service October 27, 2019 Admission HPI Per Admitting Provider 79 year old male who presents to the ED for evaluation of leg pain and swelling. Patient reports his symptoms have been going on for about the past one year. Patient reports lower extremity pain with walking that improves with rest. He also notes the swelling gets worse with walking as well. Patient notes some shortness of breath in the morning after waking up. Has a dry, nonproductive cough. Denies chest pain. No orthopnea. Has been feeling generally weak recently and has had a few falls. Denies striking his head or loss of consciousness. No lightheadedness or dizziness. Reports his appetite has been poor over the past couple months and has had a 20 pound unintentional weight loss. Denies abdominal pain, nausea, vomiting, diarrhea. No fevers or chills. Denies urinary symptoms. Admission Exam Per Admitting Provider Physical Exam: Vitals signs as noted above General Appearance:Thin, Frail, no apparent distress Head: normocephalic, Atraumatic Eyes: normal inspection, EOMI Neck: supple, Trachea midline Respiratory/Chest: Normal breath sounds, B/L rales, No accessory muscle use Cardiovascular: S1, S2, + murmur Abdomen/GI:Soft, RUQ tender, Bowel sounds present Extremities/Musculoskelatal:normal inspection, B/L LE edema Neurologic/Psych:AAOX3, grossly no focal neurological deficits Skin: normal color, warm Principal Diagnosis Acute systolic heart failure Chronic cholecystitis Peripheral artery disease Discharge Data Allergies Allergy/AdvReac Type Severity Reaction Status Date / Time No Known Drug Allergies AdvReac Unknown Unknown Unverified 10/26/19 13:44 Consultations 10/26/19 15:59 ED Decision to Admit Stat 10/26/19 18:07 Consult Cardiology Routine 10/27/19 07:00 Consult General Surgery Routine Procedures Performed ECHO: EF , 15%, mild LVH, severe global hypokinesis of left ventricle, grade 3 diastolic dysfunction, moderate to severe aortic stenosis, mild AR, moderate to severe MR, moderate TR, moderate size left pleural effusion. CT ABD: 1. Significantly suboptimal examination without oral and IV contrast. 2. Cardiomegaly with evidence of congestive failure. 3. Moderate pleural effusions. 4. Cholelithiasis. Pericholecystic fluid and stranding are suggested. Correlate clinically for evidence of cholecystitis. If clinically warranted this could be further assessed with right upper quadrant ultrasound. 5. There is a small volume of abdominopelvic ascites. 6. There is a 3.0 cm infrarenal abdominal aortic aneurysm. Venous Doppler There is no sonographic evidence of deep venous thrombosis identified in the right or left lower extremity. CXR: Congestive heart failure Ordered Studies 10/26/19 13:51 US venous doppler LE BI Stat 10/26/19 18:07 CT abd pelvis wo con Routine 10/27/19 US gallbladder Routine Hospital Course (1) CHF (congestive heart failure): Acute Systolic and diastolic CHF Patient presented with worsening lower extremity pain and swelling ECHO: EF , 15%, mild LVH, severe global hypokinesis of left ventricle, grade 3 diastolic dysfunction, moderate to severe aortic stenosis, mild AR, moderate to severe MR, moderate TR, moderate size left pleural effusion. CXR suggestive of CHF Mild elevation of troponin likely demand ischemia secondary to CHF, CKD Received IV Lasix Appreciate Cardiology Input Started on low-dose metoprolol, lisinopril Continue diuretics as per cardiology recommendation Patient prefers to be discharged home AGAINST MEDICAL ADVICE despite explaining the risks and consequences (2) PAD (peripheral artery disease): Outpatient arterial ultrasound on 09/07/2019 showing marked bilateral arterial vascular disease Patient was referred for vascular intervention however has not been evaluated ye t Started on aspirin, statin Possible Chronic Cholecystitis --CT ABD: Cardiomegaly with evidence of congestive failure. Moderate pleural effusions. Cholelithiasis. Pericholecystic fluid and stranding are suggested. Correlate clinically for evidence of cholecystitis. If clinically warranted this could be further assessed with right upper quadrant ultrasound. There is a small volume of abdominopelvic ascites. There is a 3.0 cm infrarenal abdominal aortic aneurysm. --Gall Bladder USD: Cholelithiasis within a distended and mildly thick-walled gallbladder. A sonographic Pepe's sign could not be assessed. Findings are equivocal for acute cholecystitis which is not excluded. Nuclear hepatobiliary scan could be considered for further assessment. There is a small volume of pericholecystic and perihepatic ascites. Right pleural effusion. --Continue IV antibiotics --Patient refuses HIDA scan --Appreciate surgery input --Patient refuses any surgical intervention if needed, explained the con sequences and risks without complete treatment --Patient left AMA (3) Abnormal renal function: Possibly has underlying CKD III Creatinine 1.8 Unknown baseline Cr Monitor renal function (4) HTN (hypertension): Continue lisinopril, metoprolol Monitor (5) Weight loss: Patient reports a 20 pound unintentional weight loss over the past 2 months Likely due to above (6) DVT prophylaxis: SQ heparin Disposition Patient left AGAINST MEDICAL ADVICE Total Time Total Time Spent Total Time Spent (In Minutes): 25 minutes Total Time Includes: Examination of the Patient, Discharge Planning, Medication Reconciliation, Communication With Other Providers and Other Discharge Plan Discharge Items Patient Disposition: Against Medical Advice Reason For Visit: CHF Discharge Diagnosis: Acute systolic heart failure Chronic cholecystitis Peripheral artery disease Activity: Per Instructions section Exercise/Sports: Gradually increase as tolerated Non-emergency contact: Primary Care Provider and Typing Pool Supervisor Call non-emergency contact if: you have any medication questions, your symptoms worsen, your pain is not controlled, your pain is worsening, your pain is unusual for you, your pain is concerning for you and you have a fever Follow-up/Referrals: Low Rosas [Primary Care Provider] - Diet: Heart Healthy and Low Sodium (2gm) Addtl Attending Provider Instructions: Follow-up with your primary care physician Low Rosas in 1 week as advised Follow up with your Typing Pool Supervisor in 2 weeks Complete antibiotic course as prescribed Seek immediate medical attention if your symptoms reoccur or worsen Pending Studies at Discharge: No Stand-Alone Forms: My [employer], Smoking Cessation Medications and DC Order Prescriptions: New atorvastatin 40 mg Tablet 40 mg PO HS Qty: 30 RF: 0 aspirin [Ecotrin Low Strength] 81 mg Tablet,Delayed Release (Dr/Ec) 81 mg PO DAILY Qty: 30 RF: 0 lisinopril 20 mg tablet 20 mg PO DAILY Qty: 30 RF: 0 metoprolol succinate [Toprol XL] 25 mg tablet extended release 24 hr 12.5 mg PO DAILY Qty: 30 RF: 0 furosemide [Lasix] 20 mg tablet 20 mg PO UD Qty: 30 RF: 0 metronidazole [Flagyl] 500 mg tablet 500 mg PO Q8H 7 Days Qty: 21 RF: 0 cefdinir 300 mg capsule 300 mg PO BID 7 Days Qty: 14 RF: 0 Discontinued lisinopril 40 mg Tablet 40 mg PO DAILY RF: 0 Discharge Orders: Left Against Medical Advice (Routine); Ordered 10/27/19 Ordered By: Felice Shah Admission Data Admit Date/Time: 10/26/19 16:19 Attending Provider: Felice Shah Admit Provider: Felice Shah Primary Care Provider: Low Rosas Other Providers: Felice Shah ; Boogie Reno ; Ashok Beyer Other Interventions: Discharge Summary Assessment (RN) Last Done: 10/27/19 14:04 DC Date/Time DO NOT enter until pt leaves facility: 10/27/19 14:46
== END 2019-10-27 14:46 | disposition left against medical advice (07) | DRG 291 ==
LOC: ED 13:10 → 2S 16:19